=== PATIENT | male | born 1945 | race Caucasian/White ===

== ENCOUNTER 2017-01-05 12:13 | Inpatient (IN) | payer OTHER ==
[2017-01-05] MEDS ORDERED: hydrOXYzine HCl 25 MG Tab PO PRN (12:44)
[2017-01-05] MEDS ORDERED: Acetaminophen/oxyCODONE 325-5 MG Tab PO PRN (12:44)
[2017-01-05] MEDS: Acetaminophen 325 MG Tab PO PRN ×2 (14:55→19:57)
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
[2017-01-05] MEDS: metFORMIN 500 MG Tab PO SCH (17:44)
[2017-01-05] MEDS: Aspirin 325 MG Tab.EC PO SCH (19:57)
[2017-01-05] MEDS: Polyethylene Glycol 3350 Powder 17 GM Packet PO SCH (19:59)
[2017-01-06] MEDS: Aspirin 325 MG Tab.EC PO SCH ×2 (07:52→19:44)
[2017-01-06] MEDS: Polyethylene Glycol 3350 Powder 17 GM Packet PO SCH ×2 (07:53→19:45)
[2017-01-06] MEDS: metFORMIN 500 MG Tab PO SCH ×2 (07:53→17:01)
[2017-01-06] MEDS: Acetaminophen 325 MG Tab PO PRN (19:44)
[2017-01-07] MEDS: Aspirin 325 MG Tab.EC PO SCH ×2 (07:29→19:51)
[2017-01-07] MEDS: Polyethylene Glycol 3350 Powder 17 GM Packet PO SCH ×2 (07:29→19:50)
[2017-01-07] MEDS: metFORMIN 500 MG Tab PO SCH ×2 (07:29→17:11)
[2017-01-08 05:54] VITALS: BP 140/73
[2017-01-08] MEDS: Polyethylene Glycol 3350 Powder 17 GM Packet PO SCH (07:57)
[2017-01-08] MEDS: metFORMIN 500 MG Tab PO SCH (07:57)
[2017-01-08] MEDS: Aspirin 325 MG Tab.EC PO SCH (07:57)
[2017-01-08] MEDS: Acetaminophen 325 MG Tab PO PRN (11:59)
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
== END 2017-01-08 15:35 | disposition home or self-care (01) | DRG 561 ==
LOC: VM.MS 12:13
PROVIDERS: ADMIT Family Medicine; ATTEND Family Medicine
DX: Z47.1 Aftercare following joint replacement surgery (principal); M17.0 Bilateral primary osteoarthritis of knee; R53.1 Weakness; Z96.651 Presence of right artificial knee joint; E11.9 Type 2 diabetes mellitus without complications; E66.9 Obesity, unspecified; Z68.33 Body mass index [BMI] 33.0-33.9, adult; N40.0 Benign prostatic hyperplasia without lower urinary tract symptoms; Z79.84 Long term (current) use of oral hypoglycemic drugs; Z79.82 Long term (current) use of aspirin; Z79.891 Long term (current) use of opiate analgesic; Z79.899 Other long term (current) drug therapy
CPT/HCPCS: 82962; 97110-GP; 97116-GP; 97161-GP; 97165-GO; 97535-GO; A9270-GY

== ENCOUNTER 2017-08-19 20:34 | Observation (INO) | payer OTHER, MEDICARE ==
[2017-08-19] MEDS ORDERED: Sodium Chloride 0.9% 10 ML Syringe FLUSH PRN (20:46)
[2017-08-19] MEDS ORDERED: cefTRIAXone 2 GM Vial IVPUSH ONE (22:25)
[2017-08-19] MEDS ORDERED: Doxycycline 100 MG Cap PO ONE (22:27)
[2017-08-19] MEDS ORDERED: Sodium Chloride 0.9% 1,000 ML IV ONE (22:28)
--- NOTE | 2017-08-20 01:08 | EDM.PDOC ---
ED HPI GENERAL MEDICAL PROBLEM - General Chief Complaint: General Stated Complaint: fever/chills, weakness, urinary incontinence Time Seen by Provider: 08/19/17 20:35 Source of Information: Reports: Patient History Limitations: Reports: Physical Impairment - History of Present Illness INITIAL COMMENTS - FREE TEXT/NARRATIVE: Pt. states that he has been having problems with coordination over the past 24- 48 hours. Pt. states that he was having difficulty dressing himself, including buttoning his pants today. Neighbor states that the pt. was at his residence this evening and appeared weak and fell, striking his head. He did not have a LOC. Pt. only complains of feeling weaker than normal and states that he has been chilled over the past several days. Pt. states that he has had problems with chronic knee pain since he had it replaced in December. He was incontinent tonight and noted to have hypersalivation and drooling, but he states that this a chronic problem for him, however it is more or a problem recently. Onset Date: 08/19/17 Location: Reports: Generalized Associated Symptoms: Reports: Fever/Chills, Malaise, Weakness. Denies: Confusion, Chest Pain, Cough, cough w sputum, Shortness of Breath right knee Pain Score (Numeric/FACES): 5 - Related Data Allergies Allergy/AdvReac Type Severity Reaction Status Date / Time No Known Allergies Allergy Verified 08/19/17 20:44 Home Meds: Home Meds Sennosides/Docusate Sodium [Senna-Docusate Sodium] 1 tab PO BID 06/12/16 [ History] metFORMIN [Glucophage] 500 mg PO BIDMEALS 06/12/16 [History] Sildenafil [Viagra] 50 mg PO DAILY PRN 06/13/16 [History] Polyethylene Glycol 3350 [MiraLAX] 17 gm PO BID 01/05/17 [History] Past Medical History HEENT History: Reports: Impaired Vision Other HEENT History: wears glasses Cardiovascular History: Reports: None Respiratory History: Reports: None Gastrointestinal History: Reports: Cholelithiasis, Other (See Below) Other Gastrointestinal History: constipation controlled with miralax Had choley Genitourinary History: Reports: BPH Other Genitourinary History: prostatic hypertrophy, erectile dysfunction Musculoskeletal History: Reports: Osteoarthritis Other Musculoskeletal History: multiple rib fractures, thoracic spine fracture, congenital coxa vara, dejenerative joint disease Neurological History: Reports: Brain Injury Psychiatric History: Reports: None Endocrine/Metabolic History: Reports: Diabetes, Type II, Obesity/BMI 30+ Hematologic History: Reports: None Immunologic History: Reports: None Oncologic (Cancer) History: Reports: None Dermatologic History: Reports: None - Infectious Disease History Infectious Disease History: Reports: Chicken Pox, Measles - Past Surgical History Head Surgeries/Procedures: Reports: None GI Surgical History: Reports: Cholecystectomy Musculoskeletal Surgical History: Reports: Knee Replacement Social & Family History - Family History Family Medical History: Noncontributory - Tobacco Use Smoking Status *Q: Never Smoker Second Hand Smoke Exposure: Yes - Caffeine Use Caffeine Use: Reports: Soda Caffeine Use Comment: occasional Coke - Recreational Drug Use Recreational Drug Use: No - Living Situation & Occupation Living situation: Reports: Alone (, lives alone. Pt. neighbors look in on him often, but ultimately he is in charge of his ADLs. 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 Denies: Chest Pain, Dyspnea on Exertion Endocrine: Reports: No Symptoms GI/Abdominal: Reports: No Symptoms : Reports: Incontinence. Denies: Dysuria, Flank Pain, Frequency Musculoskeletal: Reports: No Symptoms Skin: Reports: No Symptoms Neurological: Reports: Pre-Existing Deficit (Slow gait, chronic drooling, occasional incontinence), Weakness Psychiatric: Reports: No Symptoms Hematologic/Lymphatic: Reports: No Symptoms Immunologic: Reports: No Symptoms ED EXAM, GENERAL - Physical Exam Exam: See Below Exam Limited By: No Limitations General Appearance: Alert, WD/WN, No Apparent Distress Eye Exam: Bilateral Eye: EOMI, Normal Fundi, Normal Inspection, PERRL Ears: Normal External Exam, Normal Canal, Hearing Grossly Normal, Normal TMs Ear Exam: Bilateral Ear: Auricle Normal, Canal Normal, TM normal Nose: Normal Inspection, Normal Mucosa, No Blood Throat/Mouth: Normal Inspection, Normal Lips, Normal Teeth, Normal Gums, Normal Oropharynx, Normal Voice, No Airway Compromise Head: Atraumatic, Normocephalic Neck: Normal Inspection, Supple, Non-Tender, Full Range of Motion Respiratory/Chest: No Respiratory Distress, Lungs Clear, Normal Breath Sounds, No Accessory Muscle Use, Chest Non-Tender Cardiovascular: Normal Peripheral Pulses, Regular Rate, Rhythm, No Edema, No Gallop, No JVD, No Murmur, No Rub Peripheral Pulses: 3+: Radial (L), Radial (R) GI/Abdominal: Normal Bowel Sounds, Soft, Non-Tender, No Organomegaly, No Distention, No Abnormal Bruit, No Mass (Male) Exam: Other (incontinent of urine) Rectal (Males) Exam: Deferred Back Exam: Normal Inspection, Full Range of Motion, NT Extremities: Normal Inspection, Normal Range of Motion, Non-Tender, Normal Capillary Refill, No Pedal Edema Neurological: Alert, Oriented, CN II-XII Intact, Normal Cognition, No Motor/ Sensory Deficits, Slow to Respond, Abnormal Gait (very slow, shuffling; pt. is drooling) Psychiatric: Normal Affect, Normal Mood Skin Exam: Warm, Dry, Intact, Normal Color, No Rash Lymphatic: No Adenopathy Course - Vital Signs Last Recorded V/S: Last Vital Signs Temp 36.7 C 08/19/17 23:10 Pulse 96 08/19/17 23:10 Resp 18 08/19/17 23:10 BP 142/77 H 08/19/17 23:10 Pulse Ox 95 08/19/17 23:10 - Orders/Labs/Meds Orders: Active Orders 24 hr Category Date Time Status Chest 1V Frontal [CR] Stat Exams 08/19/17 20:44 Taken Head wo Cont [CT] Stat Exams 08/19/17 20:49 Taken CULTURE BLOOD [BC] Stat Lab 08/19/17 21:16 Received CULTURE BLOOD [BC] Stat Lab 08/19/17 21:16 Results Sodium Chloride 0.9% [Saline Flush] Med 08/19/17 20:46 Active 10 ml FLUSH ASDIRECTED PRN Blood Culture x2 Reflex Set [OM.PC] Stat Oth 08/19/17 20:46 Ordered Peripheral IV Insertion Adult [OM.PC] Routine Oth 08/19/17 20:46 Ordered Medication Orders Ceftriaxone Sodium (Rocephin) 1 gm IVPUSH DAILY [facility] Doxycycline Hyclate (Vibramycin) 100 mg PO BID [facility] Metformin HCl (Glucophage) 500 mg PO BIDMEALS [facility] Polyethylene Glycol (Miralax) 17 gm PO BID [facility] Senna/Docusate Sodium (Senna Plus) 1 tab PO BID [facility] Sodium Chloride (Saline Flush) 10 ml FLUSH ASDIRECTED PRN PRN Reason: Keep Vein Open Labs: Laboratory Tests 08/19/17 08/19/17 08/19/17 Range/Units 21:04 21:04 21:04 WBC 3.9 L (4.0-10.0) x10^3/uL RBC 4.53 (4.5-6.0) x10^6/uL Hgb 13.8 L (14.0-18.0) g/dL Hct 40.8 (40.0-52.0) % MCV 90.1 (78.0-93.0) fL MCH 30.5 (26.0-32.0) pg MCHC 33.8 (32.0-36.0) g/dL RDW Coeff of Collin 13.5 (10.0-15.0) % Plt Count 138 (130-400) x10^3/uL Neut % (Auto) 71.8 (50.0-80.0) % Lymph % (Auto) 7.0 L (25.0-50.0) % [place] % (Auto) 20.9 H (2.0-11.0) % Eos % (Auto) 0.0 (0.0-4.0) % Baso % (Auto) 0.3 (0.2-1.2) % PT 10.4 (9.8-11.8) SEC INR 1.0 L (2.0-3.5) Sodium 140 (136-145) mmol/L Potassium 3.6 (3.5-5.1) mmol/L Chloride 101 (98-107) mmol/L Carbon Dioxide 29 (21-32) mmol/L BUN 20 H (7-18) mg/dL Creatinine 1.2 (0.70-1.30) mg/dL Est Cr Clr Drug Dosing 47.96 mL/min Estimated GFR (MDRD) 60 Glucose 153 H (74-106) mg/dL Lactic Acid (0.4-2.0) mmol/L Calcium 8.7 (8.5-10.1) mg/dL Corrected Calcium 8.94 (8.5-10.1) mg/dL Total Bilirubin 0.6 (0.2-1.0) mg/dL AST 23 (15-37) U/L ALT 24 (16-63) U/L Alkaline Phosphatase 79 (46-116) U/L C-Reactive Protein 2.6 H (<=0.9) mg/dL Total Protein 7.2 (6.4-8.2) g/dL Albumin 3.7 (3.4-5.0) g/dL Globulin 3.5 Albumin/Globulin Ratio 1.06 TSH, Ultra Sensitive 0.792 (0.358-3.74) uIU/mL Urine Color (YELLOW) Urine Appearance (CLEAR) Urine pH (5.0-8.0) Ur Specific Prim Urine Protein (NEGATIVE) mg/dL Urine Glucose (UA) (NEGATIVE) mg/dL Urine Ketones (NEGATIVE) mg/dL Urine Occult Blood (NEGATIVE) Urine Nitrite (NEGATIVE) Urine Bilirubin (NEGATIVE) Urine Urobilinogen (0.2) EU/dL Ur Leukocyte Esterase (NEGATIVE) Urine RBC (NOT SEEN) /HPF Urine WBC (NOT SEEN) /HPF Ur Squamous Epith Cells (NEGATIVE) /HPF Amorphous Sediment Urine Bacteria (NEGATIVE) /HPF Hyaline Casts (NEGATIVE) /HPF Granular Casts (NEGATIVE) /HPF Urine Mucus (NEGATIVE) /LPF Ethyl Alcohol 3 (0-3) mg/dL 08/19/17 08/19/17 Range/Units 21:04 21:51 WBC (4.0-10.0) x10^3/uL RBC (4.5-6.0) x10^6/uL Hgb (14.0-18.0) g/dL Hct (40.0-52.0) % MCV (78.0-93.0) fL MCH (26.0-32.0) pg MCHC (32.0-36.0) g/dL RDW Coeff of Collin (10.0-15.0) % Plt Count (130-400) x10^3/uL Neut % (Auto) (50.0-80.0) % Lymph % (Auto) (25.0-50.0) % [place] % (Auto) (2.0-11.0) % Eos % (Auto) (0.0-4.0) % Baso % (Auto) (0.2-1.2) % PT (9.8-11.8) SEC INR (2.0-3.5) Sodium (136-145) mmol/L Potassium (3.5-5.1) mmol/L Chloride (98-107) mmol/L Carbon Dioxide (21-32) mmol/L BUN (7-18) mg/dL Creatinine (0.70-1.30) mg/dL Est Cr Clr Drug Dosing mL/min Estimated GFR (MDRD) Glucose (74-106) mg/dL Lactic Acid 1.9 (0.4-2.0) mmol/L Calcium (8.5-10.1) mg/dL Corrected Calcium (8.5-10.1) mg/dL Total Bilirubin (0.2-1.0) mg/dL AST (15-37) U/L ALT (16-63) U/L Alkaline Phosphatase (46-116) U/L C-Reactive Protein (<=0.9) mg/dL Total Protein (6.4-8.2) g/dL Albumin (3.4-5.0) g/dL Globulin Albumin/Globulin Ratio TSH, Ultra Sensitive (0.358-3.74) uIU/mL Urine Color Dark yellow H (YELLOW) Urine Appearance Cloudy H (CLEAR) Urine pH 6.0 (5.0-8.0) Ur Specific Prim 1.025 Urine Protein 100 H (NEGATIVE) mg/dL Urine Glucose (UA) 250 H (NEGATIVE) mg/dL Urine Ketones 15 H (NEGATIVE) mg/dL Urine Occult Blood Small H (NEGATIVE) Urine Nitrite Negative (NEGATIVE) Urine Bilirubin Small H (NEGATIVE) Urine Urobilinogen 2.0 H (0.2) EU/dL Ur Leukocyte Esterase Negative (NEGATIVE) Urine RBC 5-10 H (NOT SEEN) /HPF Urine WBC 0-5 (NOT SEEN) /HPF Ur Squamous Epith Cells Not seen (NEGATIVE) /HPF Amorphous Sediment Few Urine Bacteria Few H (NEGATIVE) /HPF Hyaline Casts Few H (NEGATIVE) /HPF Granular Casts Occasional H (NEGATIVE) /HPF Urine Mucus Many H (NEGATIVE) /LPF Ethyl Alcohol (0-3) mg/dL Meds: Medications Generic Name Dose Route Start Last Admin Trade Name Freq PRN Reason Stop Dose Admin Ceftriaxone Sodium 1 gm 08/20/17 22:00 Rocephin IVPUSH DAILY [facility] Doxycycline Hyclate 100 mg 08/20/17 10:00 Vibramycin PO BID [facility] Metformin HCl 500 mg 08/20/17 08:00 Glucophage PO BIDMEALS [facility] Polyethylene Glycol 17 gm 08/20/17 08:00 Miralax PO BID [facility] Senna/Docusate Sodium 1 tab 08/20/17 08:00 Senna Plus PO BID [facility] Sodium Chloride 10 ml 08/19/17 20:46 Saline Flush FLUSH ASDIRECTED PRN Keep Vein Open Discontinued Medications Generic Name Dose Route Start Last Admin Trade Name Freq PRN Reason Stop Dose Admin Ceftriaxone Sodium 2 gm 08/19/17 22:25 08/19/17 22:42 Rocephin IVPUSH 08/19/17 22:26 2 gm ONETIME ONE Administration Doxycycline Hyclate 100 mg 08/19/17 22:27 08/19/17 22:39 Vibramycin PO 08/19/17 22:28 100 mg ONETIME ONE Administration Sodium Chloride 1,000 mls @ 1,000 mls/hr 08/19/17 22:28 08/19/17 22:42 Normal Saline IV 08/19/17 23:27 1,000 mls/hr .BOLUS ONE Administration - Radiology Interpretation Free Text/Narrative:: Bilateral lower lobe infiltrates Departure - Departure Time of Disposition: 22:50 Disposition: Refer to Observation Clinical Impression: Community acquired pneumonia - Discharge Information - My Orders Last 24 Hours: My Active Orders 08/19/17 20:44 Chest 1V Frontal [CR] Stat 08/19/17 20:46 Sodium Chloride 0.9% [Saline Flush] 10 ml FLUSH ASDIRECTED PRN Blood Culture x2 Reflex Set [OM.PC] Stat Peripheral IV Insertion Adult [OM.PC] Routine 08/19/17 20:49 Head wo Cont [CT] Stat 08/19/17 21:16 CULTURE BLOOD [BC] Stat CULTURE BLOOD [BC] Stat - Assessment/Plan Last 24 Hours: My Active Orders 08/19/17 20:44 Chest 1V Frontal [CR] Stat 08/19/17 20:46 Sodium Chloride 0.9% [Saline Flush] 10 ml FLUSH ASDIRECTED PRN Blood Culture x2 Reflex Set [OM.PC] Stat Peripheral IV Insertion Adult [OM.PC] Routine 08/19/17 20:49 Head wo Cont [CT] Stat 08/19/17 21:16 CULTURE BLOOD [BC] Stat CULTURE BLOOD [] Stat Assessment:: Community acquired pneumonia Plan: Admit-Observation. Cherelle Villarreal. Diagnosis-Community acquired pneumonia. Code status-1 Vitals every 4 hours Antiembolic stockings, will not anticoagulate as he is a fall risk. Rocephin every 24 hours, doxycycline 100mg BID. PT and OT to see
[2017-08-20] MEDS: metFORMIN 500 MG Tab**OWN MED PO SCH ×2 (07:52→18:10)
[2017-08-20] MEDS: Docusate Sodium/Sennosides 50-8.6 MG Tab**OWN MED PO SCH ×2 (07:52→20:50)
[2017-08-20] MEDS: POLYETHYLENE GLYCOL 238 GM PO SCH ×2 (07:52→20:51)
[2017-08-20] MEDS: Doxycycline 100 MG Cap PO SCH ×2 (09:48→20:35)
--- NOTE | 2017-08-20 10:11 | PCM.PN ---
- General Info Date of Service: 08/20/17 Admission Dx/Problem (Free Text): Pt. presented to ER with chills and weakness and was found to have bilateral infiltrates. He was started on IV rocephin and doxycycline. He states that he is feeling somewhat better today. He states that his chills have improved. PT did work with him today and he was able to ambulate farther than he was last night. Functional Status: Reports: Pain Controlled - Review of Systems General: Reports: No Symptoms HEENT: Reports: No Symptoms Pulmonary: Reports: Cough Cardiovascular: Reports: No Symptoms Gastrointestinal: Reports: No Symptoms Genitourinary: Reports: No Symptoms Musculoskeletal: Reports: No Symptoms Skin: Reports: No Symptoms Neurological: Reports: Weakness Psychiatric: Reports: No Symptoms - Patient Data Vitals - Most Recent: Last Vital Signs Temp 38.0 C 08/20/17 06:00 Pulse 81 08/20/17 06:00 Resp 18 08/20/17 06:00 BP 127/71 08/20/17 06:00 Pulse Ox 100 08/20/17 06:00 Weight - Most Recent: 83.915 kg I&O - Last 24 Hours: Intake & Output 08/19/17 08/20/17 08/20/17 22:59 06:59 14:59 Intake Total 150 180 Output Total 600 225 Balance -450 -45 Lab Results Last 24 Hours: Laboratory Results - last 24 hr 08/20/17 08/20/17 Range/Units 06:25 06:25 WBC 5.1 (4.0-10.0) x10^3/uL RBC 4.24 L (4.5-6.0) x10^6/uL Hgb 12.8 L (14.0-18.0) g/dL Hct 38.6 L (40.0-52.0) % MCV 91.0 (78.0-93.0) fL MCH 30.2 (26.0-32.0) pg MCHC 33.2 (32.0-36.0) g/dL RDW Coeff of Collin 13.4 (10.0-15.0) % Plt Count 134 (130-400) x10^3/uL Neut % (Auto) 70.5 (50.0-80.0) % Lymph % (Auto) 15.9 L (25.0-50.0) % [place] % (Auto) 13.2 H (2.0-11.0) % Eos % (Auto) 0.2 (0.0-4.0) % Baso % (Auto) 0.2 (0.2-1.2) % Lactic Acid 0.8 (0.4-2.0) mmol/L Med Orders - Current: Current Medications Ceftriaxone Sodium (Rocephin) 1 gm IVPUSH DAILY [facility] Doxycycline Hyclate (Vibramycin) 100 mg PO BID [facility] Last Admin: 08/20/17 09:48 Dose: 100 mg Metformin HCl (Glucophage) 500 mg PO BIDMEALS [facility] Last Admin: 08/20/17 07:52 Dose: 500 mg Polyethylene Glycol (Miralax) 17 gm PO BID [facility] Last Admin: 08/20/17 07:52 Dose: Not Given Senna/Docusate Sodium (Senna Plus) 1 tab PO BID [facility] Last Admin: 08/20/17 07:52 Dose: Not Given Sodium Chloride (Saline Flush) 10 ml FLUSH ASDIRECTED PRN PRN Reason: Keep Vein Open Discontinued Medications Ceftriaxone Sodium (Rocephin) 2 gm IVPUSH ONETIME ONE Stop: 08/19/17 22:26 Last Admin: 08/19/17 22:42 Dose: 2 gm Doxycycline Hyclate (Vibramycin) 100 mg PO ONETIME ONE Stop: 08/19/17 22:28 Last Admin: 08/19/17 22:39 Dose: 100 mg Sodium Chloride (Normal Saline) 1,000 mls @ 1,000 mls/hr IV .BOLUS ONE Stop: 08/19/17 23:27 Last Admin: 08/19/17 22:42 Dose: 1,000 mls/hr - Exam General: Alert, Oriented HEENT: Pupils Equal, Pupils Reactive, EOMI, Mucous Membr. Moist/[place] Neck: Supple Lungs: Clear to Auscultation, Normal Respiratory Effort Cardiovascular: Regular Rate, Regular Rhythm GI/Abdominal Exam: Normal Bowel Sounds, Soft, Non-Tender, No Organomegaly, No Distention, No Abnormal Bruit, No Mass, Pelvis Stable Back Exam: Normal Inspection, Full Range of Motion Extremities: Normal Inspection, Normal Range of Motion, No Pedal Edema, Normal Capillary Refill Skin: Warm, Dry, Intact Neurological: No New Focal Deficit Psy/Mental Status: Alert, Normal Affect, Normal Mood - Problem List Review Problem List Initiated/Reviewed/Updated: Yes - My Orders Last 24 Hours: My Active Orders 08/19/17 23:10 Intake and Output [RC] QSHIFT Oxygen Therapy [RC] PRN Up With Assistance [RC] ASDIRECTED VTE/DVT Education [RC] PER UNIT ROUTINE Vital Signs [RC] Q4H 08/19/17 23:11 Code Status [Resuscitation Status] Routine 08/19/17 23:12 Antiembolic Devices [RC] PER UNIT ROUTINE Antiembolic Hose [OM.PC] Routine 08/19/17 23:13 OT Evaluation and Treatment [CONS] Routine PT Evaluation and Treatment [CONS] Routine 08/20/17 08:00 Docusate Sodium/Sennosides [Senna Plus] 1 tab PO BID Polyethylene Glycol 3350 [MiraLAX] 17 gm PO BID metFORMIN [Glucophage] 500 mg PO BIDMEALS 08/20/17 10:00 Doxycycline [Vibramycin] 100 mg PO BID 08/20/17 22:00 cefTRIAXone [Rocephin] 1 gm IVPUSH DAILY 08/20/17 Breakfast Regular Diet [DIET] - Assessment Assessment:: Community acquired pneumonia - Plan Plan:: Continue with rocephin and doxycycline. Anticipate discharge tomorrow if he continues to improve. Encouraged ambulation.
[2017-08-20] MEDS: cefTRIAXone 1 GM Vial IVPUSH SCH (22:26)
[2017-08-21] MEDS: Docusate Sodium/Sennosides 50-8.6 MG Tab**OWN MED PO SCH (07:33)
[2017-08-21] MEDS: metFORMIN 500 MG Tab**OWN MED PO SCH (07:33)
[2017-08-21] MEDS: POLYETHYLENE GLYCOL 238 GM PO SCH (07:33)
[2017-08-21] MEDS: Doxycycline 100 MG Cap PO SCH (07:33)
[2017-08-21] MEDS: cefTRIAXone 1 GM Vial IVPUSH SCH (07:33)
--- NOTE | 2017-08-21 12:30 | PCM.DCSUM1 ---
Discharge Summary - Hospital Course Brief History: Patient presented to the ED on 08/19/17 with complaints of weakness, coordination problems over the last 24-48 hours, falling today and hitting his head. Complains also of chills over the last few days, incontinent of urine today, and having a worsening lately of hypersalivation and drooling which is chronic for him but worse as of late. - Discharge Data Discharge Date: 08/21/17 Discharge Disposition: Home, Self-Care 01 Condition: Good - Discharge Diagnosis/Problem(s) (1) Community acquired pneumonia SNOMED Code(s): 951535441 ICD Code: J18.9 - PNEUMONIA, UNSPECIFIED ORGANISM Status: Acute Priority : Medium Current Visit: Yes Qualifiers: Laterality: unspecified laterality Qualified Code(s): J18.9 - Pneumonia, unspecified organism - Patient Summary/Data Consults: Consultations 08/19/17 23:13 OT Evaluation and Treatment [CONS] Routine PT Evaluation and Treatment [CONS] Routine Hospital Course: Patient admitted with bilateral CAP and began treatment with IV Rocephin and oral Doxycycline. Labs day one did show improvement, he was hydrated with IV fluids. Physical therapy saw 08/20/17 and he was ambulating farther than prior. Patient no longer has chills, lactic acid levels are normal, white count improves. Discharge for today if this trend continues. - Patient Instructions Diet: Usual Diet as Tolerated Activity: As Tolerated Notify Provider of: Fever, Swelling and Redness, Nausea and/or Vomiting - Discharge Plan Prescriptions/Med Rec: Doxycycline Calcium [IMW: Doxycycline] 100 mg PO BID #11 capsule Home Medications: Home Meds Sennosides/Docusate Sodium [Senna-Docusate Sodium] 1 tab PO BID 06/12/16 [ History] metFORMIN [Glucophage] 500 mg PO BIDMEALS 06/12/16 [History] Sildenafil [Viagra] 50 mg PO DAILY PRN 06/13/16 [History] Polyethylene Glycol 3350 [MiraLAX] 17 gm PO BID 01/05/17 [History] Doxycycline Calcium [IMW: Doxycycline] 100 mg PO BID #11 capsule 08/21/17 [Rx] Patient Handouts: Community-Acquired Pneumonia, Adult, [id number] Forms: ED Department Discharge Referrals: Rex Garcia MD [Primary Care Provider] - - Discharge Summary/Plan Comment DC Time >30 min.: Yes Discharge Summary/Plan Comment: 1. Continue doxycycline until they are gone. Even if you feel better. 2. Make sure to eat yogurt and take some oral probiotics to prevent a stomach bacterial infection called C. Diff. You should take the priobiotics for 4-6 weeks even after you've completed the doxycycline. 3. Follow up with your primary doctor in 7 days or sooner if you have any concerns. 4. Drink plenty of water to stay well hydrated. - General Info Date of Service: 08/21/17 Admission Dx/Problem (Free Text: Pt. presented to ER with chills and weakness and was found to have bilateral infiltrates. He was started on IV rocephin and doxycycline. He states that he is feeling somewhat better today. He states that his chills have improved. PT did work with him today and he was able to ambulate farther than he was last night. Functional Status: Reports: Pain Controlled, Tolerating Diet, Ambulating, Urinating - Review of Systems General: Reports: No Symptoms HEENT: Reports: No Symptoms Pulmonary: Reports: No Symptoms Cardiovascular: Reports: No Symptoms Gastrointestinal: Reports: Diarrhea Genitourinary: Reports: No Symptoms Musculoskeletal: Reports: No Symptoms Skin: Reports: No Symptoms Neurological: Reports: No Symptoms Psychiatric: Reports: No Symptoms - Patient Data Vitals - Most Recent: Last Vital Signs Temp 37.3 C 08/21/17 10:00 Pulse 81 08/21/17 10:00 Resp 18 08/21/17 10:00 BP 126/71 08/21/17 10:00 Pulse Ox 94 L 08/21/17 10:00 Weight - Most Recent: 83.915 kg I&O - Last 24 hours: Intake & Output 08/20/17 08/21/17 08/21/17 22:59 06:59 14:59 Intake Total 460 1200 240 Output Total 550 900 Balance -90 300 240 Med Orders - Current: Current Medications Ceftriaxone Sodium (Rocephin) 1 gm IVPUSH DAILY [facility] Last Admin: 08/21/17 07:33 Dose: 1 gm Doxycycline Hyclate (Vibramycin) 100 mg PO BID [facility] Last Admin: 08/21/17 07:33 Dose: 100 mg Metformin HCl (Glucophage) 500 mg PO BIDMEALS [facility] Last Admin: 08/21/17 07:33 Dose: 500 mg Polyethylene Glycol (Miralax) 17 gm PO BID [facility] Last Admin: 08/21/17 07:33 Dose: Not Given Senna/Docusate Sodium (Senna Plus) 1 tab PO BID [facility] Last Admin: 08/21/17 07:33 Dose: Not Given Sodium Chloride (Saline Flush) 10 ml FLUSH ASDIRECTED PRN PRN Reason: Keep Vein Open Discontinued Medications Ceftriaxone Sodium (Rocephin) 2 gm IVPUSH ONETIME ONE Stop: 08/19/17 22:26 Last Admin: 08/19/17 22:42 Dose: 2 gm Doxycycline Hyclate (Vibramycin) 100 mg PO ONETIME ONE Stop: 08/19/17 22:28 Last Admin: 08/19/17 22:39 Dose: 100 mg Sodium Chloride (Normal Saline) 1,000 mls @ 1,000 mls/hr IV .BOLUS ONE Stop: 08/19/17 23:27 Last Admin: 08/19/17 22:42 Dose: 1,000 mls/hr - Exam General: Reports: Alert, Oriented, Cooperative, No Acute Distress HEENT: Reports: Pupils Equal, Pupils Reactive, EOMI, Mucous Membr. Moist/[place] Neck: Reports: Supple Lungs: Reports: Clear to Auscultation, Normal Respiratory Effort Cardiovascular: Reports: Regular Rate, Regular Rhythm GI/Abdominal Exam: Normal Bowel Sounds, Soft, Non-Tender, No Organomegaly, No Distention, No Abnormal Bruit, No Mass, Pelvis Stable Back Exam: Reports: Normal Inspection, Full Range of Motion Extremities: Normal Inspection, Normal Range of Motion, Non-Tender, No Pedal Edema, Normal Capillary Refill Skin: Reports: Warm, Dry, Intact Wound/Incisions: Reports: Healing Well Neurological: Reports: No New Focal Deficit Psy/Mental Status: Reports: Alert, Normal Affect, Normal Mood *Q Meaningful Use (DIS) - VTE *Q VTE Criteria *Q: - Stroke *Q Stroke Criteria *Q: - AMI *Q AMI Criteria *Q:
[2017-08-21 13:57] VITALS: BP 109/69
== END 2017-08-21 15:00 | disposition home or self-care (01) ==
LOC: VM.ED 20:34 → VM.MS 22:28
PROVIDERS: ADMIT Physician Assistant; ATTEND Physician Assistant
DX: J18.9 Pneumonia, unspecified organism (principal); K11.7 Disturbances of salivary secretion; N40.1 Benign prostatic hyperplasia with lower urinary tract symptoms; N39.498 Other specified urinary incontinence; N52.9 Male erectile dysfunction, unspecified; M19.90 Unspecified osteoarthritis, unspecified site; E11.9 Type 2 diabetes mellitus without complications; E66.9 Obesity, unspecified; Z90.49 Acquired absence of other specified parts of digestive tract; Z79.899 Other long term (current) drug therapy; Z79.84 Long term (current) use of oral hypoglycemic drugs; Z68.30 Body mass index [BMI] 30.0-30.9, adult
CPT/HCPCS: 36415; 70450; 71045; 80053; 81001; 83605; 84443; 85025; 85610; 86140; 87040; 87328; 87329; 87493; 96374; 96376; 97110; 97161; 97165; 97530; 99285; A9270; G0378; G0480; J0696; J7030

== ENCOUNTER 2018-12-27 00:01 | Observation (INO) | payer OTHER, MEDICARE ==
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
[2018-12-27 01:03] LABS: ANION GAP 14.2 mmol/L (10-20); CHLORIDE,CL 104 mmol/L (98-107); SODIUM,NA 143 mmol/L (136-145)
[2018-12-27] MEDS ORDERED: Ibuprofen 200 MG Tab PO PRN (02:20)
[2018-12-27] MEDS ORDERED: Ondansetron 4 MG Tab.DIS PO PRN (02:20)
[2018-12-27] MEDS ORDERED: Acetaminophen 325 MG Tab PO PRN (02:20)
[2018-12-27] MEDS: metFORMIN 500 MG Tab PO SCH (07:22)
[2018-12-27] MEDS: Sodium Chloride 0.9% 10 ML Syringe IV SCH (07:22)
[2018-12-27] MEDS ORDERED: Polyethylene Glycol 3350 Powder 17 GM Packet PO PRN (07:54)
--- NOTE | 2018-12-27 09:12 | CT ---
[id number] CT/CT Head WO IV EXAM: NONCONTRAST HEAD CT INDICATION: Fall. COMPARISON: August 19, 2017. DISCUSSION: Stable mild generalized atrophy. Stable mild chronic small vessel ischemic changes including probable chronic basal ganglia lacunar infarcts. No mass effect or midline shift. No acute hemorrhage or extra-axial fluid collection. No acute territorial infarct is identified. A limited look at the orbits and paranasal sinuses is unremarkable. IMPRESSION: 1. No acute findings. Carlos Eduardo Watkins MD 12/27/18 0910 Thank you for allowing us to participate in the care of your patient.
[2018-12-27 10:04] VITALS: BP 128/68
== END 2018-12-27 13:45 | disposition home or self-care (01) ==
LOC: VM.ED 00:01 → VM.MS 02:11
PROVIDERS: ADMIT Nurse Practitioner; ATTEND Physician Assistant
DX: S00.93XA Contusion of unspecified part of head, initial encounter (principal); E11.9 Type 2 diabetes mellitus without complications; V89.2XXA Person injured in unspecified motor-vehicle accident, traffic, initial encounter; Z79.84 Long term (current) use of oral hypoglycemic drugs; Z79.899 Other long term (current) drug therapy
CPT/HCPCS: 36415; 70450; 80048; 85025; 99285-25; A9270-GY

== ENCOUNTER 2021-06-22 13:55 | Emergency (ER) | payer MEDICARE, OTHER ==
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
[2021-06-22 15:36] LABS: CHLORIDE,CL 98 mmol/L (98-107); SODIUM,NA 139 mmol/L (136-145)
[2021-06-22 15:56] VITALS: BP 175/52; PULSE 85
--- NOTE | 2021-06-22 16:00 | CT ---
[id number] CT/CT Head WO IV EXAM: CT Head WO IV CLINICAL DATA: TRAUMA COMPARISON: CORRELATION IS MADE WITH THE EXAM OF DECEMBER 27, 2018 FINDINGS: There is motion artifact There is no mass or mass effect. There is no hemorrhage or hydrocephalus. There are no extra-axial fluid collections. There are no sites of abnormal attenuation. IMPRESSION: NO PLAIN CT EVIDENCE OF ACUTE INTRACRANIAL PROCESS. Tavo Flowers MD 06/22/21 6628 Thank you for allowing us to participate in the care of your patient.
--- NOTE | 2021-06-22 16:02 | CR ---
[id number] RAD/RAD Chest PA And Lateral EXAM: RAD Chest PA And Lateral CLINICAL DATA: TRAUMA COMPARISON: CORRELATION IS MADE WITH THE EXAM OF MAY 21, 2019 FINDINGS: Elevation of the left hemidiaphragm again is seen The cardiomediastinal contour is stable Surgical changes of the cervical spine, thoracic spine, and left ribs are seen There is a filter in the inferior vena cava IMPRESSION: NO ACUTE PROCESS. Tavo Flowers MD 06/22/21 1600 Thank you for allowing us to participate in the care of your patient.
== END 2021-06-22 16:55 | disposition home or self-care (01) ==
LOC: VM.ED 13:55
DX: S80.11XA Contusion of right lower leg, initial encounter (principal); S80.12XA Contusion of left lower leg, initial encounter; S40.021A Contusion of right upper arm, initial encounter; S40.022A Contusion of left upper arm, initial encounter; M19.90 Unspecified osteoarthritis, unspecified site; E11.9 Type 2 diabetes mellitus without complications; E66.9 Obesity, unspecified; Z68.21 Body mass index [BMI] 21.0-21.9, adult; Z79.82 Long term (current) use of aspirin; Z79.899 Other long term (current) drug therapy; W19.XXXA Unspecified fall, initial encounter; Y92.009 Unspecified place in unspecified non-institutional (private) residence as the place of occurrence of the external cause
CPT/HCPCS: 36415; 70450; 71046; 80053; 81001; 83735; 85025; 99284; 99284-25

== ENCOUNTER 2021-06-29 20:36 | Emergency (ER) | payer MEDICARE, OTHER ==
--- NOTE | 2021-06-29 21:33 | EDM.PDOC ---
ED HPI GENERAL MEDICAL PROBLEM - General Chief Complaint: General Stated Complaint: CONFUSION Time Seen by Provider: 06/29/21 20:36 Source of Information: Reports: Patient, Other - History of Present Illness INITIAL COMMENTS - FREE TEXT/NARRATIVE: Urgency department complaint of increased confusion. Patient was seen in the clinic earlier today for an MRI and ended up falling in the parking lot. Sustai ashutosh a finger dislocation and subsequently did find a clavicle fracture is unknown if it is a new fracture or an old fracture. They did place him in a sling. He also did develop frontal head hematoma that they did repair by placing dressing over it in the clinic. Patient was sent home he did have some post concussive repetitive discussion however neurologically he was found to be suitable for discharge. He ended up having his MRI and was discharged home however the POA/parts counter sales person states that she cannot care for him at home he has not been eating his normal amount has not been taking care of himself and states that he is not able to assist with mobility and her cannot help and she is unable to lift him. The patient states that he is fully aware of the 2 falls that did occur today that resulted in the injuries. Patient also states that he has been eating when he feels like it at home and does ambulate. Onset: Gradual Duration: Other Location: Reports: Other Quality: Reports: Other Improves with: Reports: None Worsens with: Reports: None - Related Data Allergies Allergy/AdvReac Type Severity Reaction Status Date / Time No Known Allergies Allergy Verified 06/22/21 16:10 Home Meds: Home Meds metFORMIN [Glucophage] 500 mg PO BIDMEALS 06/12/16 [History] Aspirin 325 mg PO DAILY 06/13/21 [History] Carbidopa/Levodopa [Carbidopa-Levodopa 25-100] 3 tab PO QID 06/13/21 [History] Donepezil HCl [Aricept] 20 mg PO BEDTIME 06/13/21 [History] Finasteride [Proscar] 5 mg GTUBE DAILY 06/13/21 [History] Furosemide [Lasix] 40 mg PO DAILY 06/13/21 [History] Past Medical History HEENT History: Reports: Impaired Vision Other HEENT History: wears glasses Cardiovascular History: Reports: None, Heart Failure, Other (See Below) Other Cardiovascular History: neurogenic orthostatic hypotension, combined systolic and diastolic cardiac dysfunction Respiratory History: Reports: Other (See Below) Other Respiratory History: April 2019, pt had trach while in hospital. was removed prior to that hospital dc Gastrointestinal History: Reports: Cholelithiasis, Other (See Below) Other Gastrointestinal History: constipation controlled with miralax, cervical dysphagia Genitourinary History: Reports: BPH, Neurogenic Bladder Other Genitourinary History: prostatic hypertrophy, erectile dysfunction, neurogenic bladder Musculoskeletal History: Reports: Arthritis, Fracture, Osteoarthritis Other Musculoskeletal History: multiple rib fractures, thoracic spine fracture, congenital coxa vara, dejenerative joint disease Neurological History: Reports: Brain Injury, Parkinson's Other Neuro History: 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 and surgery for cyst removal on upper cervical in April 2019, spinal epidural abscess, autonomic dysfunction, 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, probable with behavioral disturbance Psychiatric History: Reports: None, Other (See Below) Other Psychiatric History: multifactorial cognitive dysfunction Endocrine/Metabolic History: Reports: Diabetes, Type II Hematologic History: Reports: None Immunologic History: Reports: None, Other (See Below) Other Immunologic History: MRSA Oncologic (Cancer) History: Reports: None Dermatologic History: Reports: None, Other (See Below) Other Dermatologic History: hypertrophic toenail - Infectious Disease History Infectious Disease History: Reports: Chicken Pox, Measles, MRSA - Past Surgical History Head Surgeries/Procedures: Reports: None Cardiovascular Surgical History: Reports: None Respiratory Surgical History: Reports: None GI Surgical History: Reports: Cholecystectomy, Other (See Below) Other GI Surgeries/Procedures: peg tube insertion 2018 Male Surgical History: Reports: None Neurological Surgical History: Reports: Spinal Fusion, Other (See Below) Other Neurological Surgeries/Procedures: fusion T8-T12 Musculoskeletal Surgical History: Reports: Knee Replacement Social & Family History - Family History Family Medical History: No Pertinent Family History - Caffeine Use Caffeine Use: Reports: Soda Caffeine Use Comment: occasional Coke - Living Situation & Occupation Living situation: Reports: Alone (, lives alone. Pt. neighbors look in on him often, but ultimately he is in charge of his ADLs. 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 Constitutional: Reports: No Symptoms HEENT: Reports: No Symptoms Respiratory: Reports: No Symptoms Cardiovascular: Reports: No Symptoms Endocrine: Reports: No Symptoms GI/Abdominal: Reports: No Symptoms : Reports: No Symptoms Musculoskeletal: Reports: No Symptoms Skin: Reports: Other (hematoma with abrasion on forehead ) Neurological: Reports: Pre-Existing Deficit Psychiatric: Reports: No Symptoms Hematologic/Lymphatic: Reports: No Symptoms Immunologic: Reports: No Symptoms ED EXAM, GENERAL - Physical Exam Exam: See Below Exam Limited By: No Limitations General Appearance: Alert, WD/WN, No Apparent Distress Head: Other (frontal hematoma with abrasion, dried blood, and gauze. parietal hematoma noted. ) Respiratory/Chest: No Respiratory Distress, Lungs Clear Cardiovascular: Normal Peripheral Pulses, Regular Rate, Rhythm, No Edema Neurological: Memory Loss Remote Events (chronic ) Skin Exam: Warm, Dry, Intact, Other (Older healing (green/yellowish) bruises noted on right upper shoulder region. ) Course - Orders/Labs/Meds Orders: Active Orders 24 hr Category Date Time Status Head wo Cont [CT] Stat Exams 06/29/21 21:09 Ordered CULTURE URINE [RM] Stat Lab 06/29/21 21:45 Received Labs: Laboratory Tests 06/29/21 06/29/21 06/29/21 Range/Units 21:33 21:33 21:45 WBC 5.3 (4.0-10.0) x10^3/uL RBC 3.42 L (4.5-6.0) x10^6/uL Hgb 10.8 L (14.0-18.0) g/dL Hct 32.3 L (40.0-52.0) % MCV 94.4 H (78.0-93.0) fL MCH 31.6 (26.0-32.0) pg MCHC 33.4 (32.0-36.0) g/dL RDW Coeff of Collin 13.2 (10.0-15.0) % Plt Count 252 (130-400) x10^3/uL Immature Gran % (Auto) 0.20 (0.00-0.43) % Neut % (Auto) 76.6 (50.0-80.0) % Lymph % (Auto) 13.9 L (25.0-50.0) % [place] % (Auto) 8.1 (2.0-11.0) % Eos % (Auto) 0.6 (0.0-4.0) % Baso % (Auto) 0.6 (0.2-1.2) % Neut # (Auto) 4.1 (1.8-7.7) x10^3/uL Lymph # (Auto) 0.7 L (1.0-4.8) x10^3/uL [place] # (Auto) 0.4 (0.0-0.8) x10^3/uL Eos # (Auto) 0.0 (0.0-0.5) x10^3/uL Baso # (Auto) 0.0 (0.0-0.2) x10^3/uL Immature Gran # (Auto) 0.01 (0.00-0.07) x10^3/uL Sodium 139 (136-145) mmol/L Potassium 4.3 (3.5-5.1) mmol/L Chloride 97 L (98-107) mmol/L Carbon Dioxide 36 H (21-32) mmol/L Anion Gap 10.3 (5-15) mmol/L BUN 24 H (7-18) mg/dL Creatinine 0.8 (0.70-1.30) mg/dL Est Cr Clr Drug Dosing TNP Estimated GFR (MDRD) > 60 Glucose 126 H (70-99) mg/dL Calcium 9.2 (8.5-10.1) mg/dL Corrected Calcium 10.1 (8.5-10.1) mg/dL Total Bilirubin 0.4 (0.2-1.0) mg/dL AST 26 (15-37) U/L ALT 9 L (16-63) U/L Alkaline Phosphatase 152 H (46-116) U/L Total Protein 7.7 (6.4-8.2) g/dL Albumin 2.9 L (3.4-5.0) g/dL Globulin 4.8 Albumin/Globulin Ratio 0.60 Urine Color Dark yellow H (YELLOW) Urine Appearance Clear (CLEAR) Urine pH 5.5 (5.0-8.0) Ur Specific [place] 1.020 Urine Protein Negative (NEGATIVE) mg/dL Urine Glucose (UA) Negative (NEGATIVE) mg/dL Urine Ketones Negative (NEGATIVE) mg/dL Urine Occult Blood Negative (NEGATIVE) Urine Nitrite Negative (NEGATIVE) Urine Bilirubin Negative (NEGATIVE) Urine Urobilinogen 1.0 (0.2) EU/dL Ur Leukocyte Esterase Trace H (NEGATIVE) U Hyaline Cast (Auto) Few Urine RBC 0-5 (NOT SEEN) /HPF Urine WBC 0-5 (NOT SEEN) /HPF Ur Squamous Epith Cells Rare (NOT SEEN) /HPF Urine Bacteria Rare (NOT SEEN) /HPF Urine Mucus Moderate H (NOT SEEN) /LPF Departure - Departure Time of Disposition: 22:45 Disposition: Home, Self-Care 01 Condition: Good Clinical Impression: Confusion - Discharge Information *PRESCRIPTION DRUG MONITORING PROGRAM REVIEWED*: Not Applicable *COPY OF PRESCRIPTION DRUG MONITORING REPORT IN PATIENT BENJIE: Not Applicable Instructions: Confusion, Fall Prevention in the Home, Adult, [id number] Referrals: Ismael Anderson PA-C [Primary Care Provider] - Forms: ED Department Discharge Additional Instructions: 1. reduce trip and falling hazards in the home 2. Can call [facility] angels, social service assistant, [facility], or the longterm for further assistance and guidance for care in the home 3. Continue all at home medications 4. Activity and diet as tolerated 5. Can take over the counter Tylenol for any pain or discomfort 6. Follow up with PCP if symptoms continue, return, or progress 7. Call with any questions or concerns - My Orders Last 24 Hours: My Active Orders 06/29/21 21:09 Head wo Cont [CT] Stat 06/29/21 21:45 CULTURE URINE [RM] Stat - Assessment/Plan Last 24 Hours: My Active Orders 06/29/21 21:09 Head wo Cont [CT] Stat 06/29/21 21:45 CULTURE URINE [RM] Stat Assessment:: 1. confusion 2. falls Plan: 1. Labs completed in the ER. Results reviewed with the patient 2. CT scan completed of head 3. UA completed in ER 4. Patient and nursing staff was updated regarding the plan of care 5. Education provided the patient regarding activity, diet, rest, [id number] medication modalities, and follow-up care was provided 6. Patient and family are agreeable to the above plan of care 7. All questions and concerns were addressed with the patient and family prior to discharge 8. Lengthy discuss with POA/medical caregivers options to get help in the home and look at intermodal customer service placement options. They were upset for they have appointment tomorrow they will miss in order to care for him and work on getting him placed/evaluated into a longterm. 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
[2021-06-29 22:07] LABS: CHLORIDE,CL 97 mmol/L (98-107); SODIUM,NA 139 mmol/L (136-145)
[2021-06-29 22:10] LABS: ANION GAP 10.3 mmol/L (5-15)
[2021-06-30 00:12] VITALS: BP 100/54; PULSE 61
--- NOTE | 2021-06-30 07:54 | CT ---
[id number] CT/CT Head WO IV EXAM: NONCONTRAST HEAD CT INDICATION: FALL COMPARISON: June 22, 2021. DISCUSSION: Left forehead and anterior scalp hematoma. There is mild generalized atrophy. The roberts and white matter are normal in attenuation. No mass effect or midline shift. No acute hemorrhage or extra-axial fluid collection. No acute territorial infarct is identified. Frothy secretions in the left frontal sinus suggestive of acute sinusitis. IMPRESSION: 1. No evidence of acute intracranial trauma. 2. Left anterior scalp/forehead hematoma. Carlos Eduardo Watkins MD 06/30/21 0752 Thank you for allowing us to participate in the care of your patient.
== END 2021-06-29 23:05 | disposition home or self-care (01) ==
LOC: VM.ED 20:36
DX: R41.0 Disorientation, unspecified (principal); E11.9 Type 2 diabetes mellitus without complications; N40.0 Benign prostatic hyperplasia without lower urinary tract symptoms; M19.90 Unspecified osteoarthritis, unspecified site; Z79.82 Long term (current) use of aspirin; Z79.84 Long term (current) use of oral hypoglycemic drugs
CPT/HCPCS: 36415; 70450; 80053; 81001; 85025; 87086; 99284; 99285-25

== ENCOUNTER 2021-07-01 19:51 | Inpatient (IN) | payer MEDICARE, OTHER ==
[2021-07-01] MEDS ORDERED: Carbidopa/Levodopa 25-100 MG Tab PO ONE (20:04)
[2021-07-01 20:33] LABS: CHLORIDE,CL 99 mmol/L (98-107); SODIUM,NA 139 mmol/L (136-145)
[2021-07-01 20:35] LABS: ANION GAP 10.6 mmol/L (5-15)
[2021-07-02] MEDS ORDERED: Acetaminophen 325 MG Tab PO PRN (01:16)
[2021-07-02] MEDS ORDERED: Ondansetron 4 MG Tab.DIS PO PRN (01:16)
[2021-07-02] MEDS ORDERED: Morphine 2 MG/ML SYRINGE IVPUSH PRN (01:16)
[2021-07-02] MEDS ORDERED: Acetaminophen/HYDROcodone 325-5 MG Tab PO PRN (01:16)
[2021-07-02] MEDS ORDERED: Docusate Sodium 100 MG Cap PO PRN (01:16)
[2021-07-02] MEDS ORDERED: Albuterol 0.083% 2.5 MG/3 ML Neb Soln NEB PRN (01:44)
[2021-07-02] MEDS ORDERED: LORazepam 2 MG/ML SDV IVPUSH ONE (02:38)
[2021-07-02] MEDS ORDERED: Flumazenil 0.1 MG/ML 5 ML MDV IVPUSH PRN ×2 (02:38→04:07)
[2021-07-02] MEDS: Melatonin 3 MG Tab PO SCH ×2 (02:43→22:50)
[2021-07-02] MEDS: Azithromycin 500 MG in Sodium Chloride 0.9% 250 ML IV SCH ×2 (03:05→07:51)
[2021-07-02 03:29] LABS: PCO2 ARTERIAL,POC 53 mmHg (35-48)
[2021-07-02] MEDS: LORazepam 2 MG/ML SDV IVPUSH PRN (05:20)
[2021-07-02] MEDS ORDERED: Aspirin 325 MG Tab.EC PO SCH (08:00)
[2021-07-02] MEDS ORDERED: metFORMIN 500 MG Tab PO SCH (08:00)
[2021-07-02] MEDS ORDERED: Furosemide 40 MG Tab PO SCH (08:00)
[2021-07-02] MEDS ORDERED: Enoxaparin 30 MG/0.3 ML Syringe SUBCUT SCH (08:00)
[2021-07-02 08:04] LABS: CHLORIDE,CL 102 mmol/L (98-107); SODIUM,NA 141 mmol/L (136-145)
[2021-07-02 08:12] LABS: ANION GAP 9.1 mmol/L (5-15)
[2021-07-02] MEDS ORDERED: OLANZapine 10 MG Vial IM PRN (09:07)
[2021-07-02] MEDS: Finasteride 5 MG Tab PO SCH (09:13)
[2021-07-02] MEDS: Carbidopa/Levodopa 25-100 MG Tab PO SCH ×4 (09:13→20:31)
[2021-07-02] MEDS: Polyethylene Glycol 3350 Powder 17 GM Packet PO SCH (09:13)
[2021-07-02] MEDS ORDERED: VANCOmycin 1.25 GM/250 ML 1.25 GM in Premix Bag 1 BAG IV SCH (09:15)
[2021-07-02] MEDS ORDERED: Piperacillin/Tazobactam 4.5 GM in Sodium Chloride 0.9% 100 ML IV ONE (09:30)
[2021-07-02] MEDS: Piperacillin/Tazobactam 3.375 GM in Sodium Chloride 0.9% 100 ML IV SCH (16:24)
[2021-07-02] MEDS ORDERED: 50% Dextrose in Water 50 ML Syringe IV STA (16:57)
[2021-07-02] MEDS ORDERED: Donepezil 10 MG Tab PO SCH (20:00)
[2021-07-02] MEDS ORDERED: Melatonin 3 MG Tab PO SCH (20:00)
[2021-07-03] MEDS: Piperacillin/Tazobactam 3.375 GM in Sodium Chloride 0.9% 100 ML IV SCH ×2 (00:32→09:15)
[2021-07-03] MEDS ORDERED: 50% Dextrose in Water 50 ML Syringe IV PRN (00:59)
[2021-07-03] MEDS ORDERED: Dextrose 5%-0.45% NaCl 1,000 ML IV SCH (01:00)
[2021-07-03 08:07] LABS: CHLORIDE,CL 104 mmol/L (98-107); SODIUM,NA 146 mmol/L (136-145)
[2021-07-03 08:08] LABS: ANION GAP 7.2 mmol/L (5-15)
[2021-07-03] MEDS: Finasteride 5 MG Tab PO SCH (09:12)
[2021-07-03] MEDS: Carbidopa/Levodopa 25-100 MG Tab PO SCH (09:12)
[2021-07-03] MEDS: Polyethylene Glycol 3350 Powder 17 GM Packet PO SCH (09:12)
[2021-07-03] MEDS ORDERED: Piperacillin/Tazobactam 3.375 GM in Sodium Chloride 0.9% 100 ML IV SCH (10:00)
[2021-07-03] MEDS ORDERED: Glycopyrrolate 0.2 MG/ML 2 ML SDV IVPUSH PRN (10:56)
[2021-07-04 05:39] VITALS: BP 52/24; PULSE 71
[2021-07-04] MEDS: LORazepam 2 MG/ML SDV IVPUSH PRN (08:09)
== END 2021-07-04 08:33 | disposition expired | DRG 177 ==
LOC: VM.ED 19:51 → VM.MS 07-02 01:14
PROVIDERS: ADMIT Physician Assistant; ATTEND Physician Assistant
DX: R53.1 Weakness (principal); J69.0 Pneumonitis due to inhalation of food and vomit; J96.01 Acute respiratory failure with hypoxia; I50.42 Chronic combined systolic (congestive) and diastolic (congestive) heart failure; I50.40 Unspecified combined systolic (congestive) and diastolic (congestive) heart failure; F05 Delirium due to known physiological condition; R62.7 Adult failure to thrive; M19.90 Unspecified osteoarthritis, unspecified site; F07.81 Postconcussional syndrome; G20 Parkinson's disease; E11.9 Type 2 diabetes mellitus without complications; F09 Unspecified mental disorder due to known physiological condition; N31.9 Neuromuscular dysfunction of bladder, unspecified; Z51.5 Encounter for palliative care; R29.6 Repeated falls; M46.42 Discitis, unspecified, cervical region; Z20.822 Contact with and (suspected) exposure to COVID-19; H54.7 Unspecified visual loss; N40.1 Benign prostatic hyperplasia with lower urinary tract symptoms; R33.8 Other retention of urine; M40.209 Unspecified kyphosis, site unspecified; K59.00 Constipation, unspecified; Z74.1 Need for assistance with personal care; N52.9 Male erectile dysfunction, unspecified; R41.0 Disorientation, unspecified; Z66 Do not resuscitate; Z96.653 Presence of artificial knee joint, bilateral; Z86.14 Personal history of Methicillin resistant Staphylococcus aureus infection; Z86.19 Personal history of other infectious and parasitic diseases; Z90.49 Acquired absence of other specified parts of digestive tract; Z98.1 Arthrodesis status; Z79.82 Long term (current) use of aspirin; Z79.899 Other long term (current) drug therapy; Z79.84 Long term (current) use of oral hypoglycemic drugs; Z87.81 Personal history of (healed) traumatic fracture; Z68.21 Body mass index [BMI] 21.0-21.9, adult; Z87.820 Personal history of traumatic brain injury
CPT/HCPCS: 36415; 36600; 51702; 70450; 71045; 74018; 80048; 80053; 80202; 80307; 81003; 82803; 82947; 83605; 83880; 85025; 94640; 94760; 99285-25; A9270-GY; J0456; J2060; J2270; J2543; J3370; J3490; J7042; J7050; U0002